=== PATIENT | female | born 1995 ===

== ENCOUNTER 2025-05-08 11:54 | Outpatient (CLI) | payer OTHER | END 2025-05-08 11:58 | disposition home or self-care (01) | LOC: PRENATAL 11:54 | PROVIDERS: ATTEND Obstetrics & Gynecology Maternal & Fetal Medicine | DX: O44.00 Complete placenta previa NOS or without hemorrhage, unspecified trimester (principal); Z3A.20 20 weeks gestation of pregnancy ==

== ENCOUNTER 2025-07-30 13:35 | Outpatient (CLI) | payer OTHER | END 2025-07-30 13:37 | disposition home or self-care (01) | LOC: PRENATAL 13:35 | PROVIDERS: ATTEND Obstetrics & Gynecology Maternal & Fetal Medicine | DX: O26.843 Uterine size-date discrepancy, third trimester (principal); O36.8130 Decreased fetal movements, third trimester, not applicable or unspecified; Z3A.32 32 weeks gestation of pregnancy ==